=== PATIENT | female | born 1950 | race Caucasian/White ===

== ENCOUNTER 2018-02-17 14:50 | Emergency (ER) | payer MEDICARE, OTHER ==
[2018-02-17] MEDS ORDERED: SODIUM CHLORIDE 0.9% 1,000 ML IV ONE ×2 (16:11→19:00)
[2018-02-17 16:46] LABS: BASOPHILS % (AUTO) 0.5 %; EOSINOPHILS % (AUTO) 0.6 %; HGB - HEMOGLOBIN 14.5 g/dL (12.0-16.0); LYMPHOCYTES # (AUTO) 1.3 10^3/uL (1.5-3.5); LYMPHOCYTES % (AUTO) 17.5 %; MEAN CORPUSCULAR HEMOGLOBIN 30.2 pg (27.0-31.0); MEAN CORPUSCULAR HGB CONC 33.9 g/dL (32.0-36.0); MEAN CORPUSCULAR VOLUME 89.1 fL (81.0-99.0); MEAN PLATELET VOLUME 9.1 fL (7.9-10.8); MONOCYTES # (AUTO) 0.4 10^3/uL (0.0-1.0); MONOCYTES % (AUTO) 4.9 %; NEUTROPHILS # (AUTO) 5.6 10^3/uL (1.5-6.6); NEUTROPHILS % (AUTO) 76.5 %; PLT - PLATELET COUNT 202 10^3/uL (130-450); RED BLOOD COUNT 4.78 10^6/uL (4.20-5.40); RED CELL DISTRIBUTION WIDTH 12.6 % (12.0-15.0); WHITE BLOOD COUNT 7.3 x10^3/uL (4.8-10.8)
[2018-02-17] MEDS ORDERED: ONDANSETRON 4 MG/2 ML VIAL IVP STA ×2 (16:52→19:16)
[2018-02-17 16:54] LABS: ALBUMIN/GLOBULIN RATIO 1.3 (1.0-2.2); BILIRUBIN,TOTAL 0.6 mg/dL (0.2-1.0); CALCIUM 9.6 mg/dL (8.5-10.3); CREATININE 0.8 mg/dL (0.4-1.0); TOTAL PROTEIN 7.2 g/dL (6.7-8.2)
--- NOTE | 2018-02-17 17:00 | ED Physician Documentation ---
History of Present Illness - Stated complaint Stated Complaint: THROAT PX/VOMITING - Chief complaint Chief Complaint: Heent - History obtained from History obtained from: Patient, Family - History of Present Illness Timing: Today Pain level max: 5 Pain level now: 5 Quality: pressure Improved by: nothing Worsened by: eating - Additonal information Additional information: Patient is a 67-year-old female who is approximately one year status post Denise fundoplication and repair of a hiatal hernia at [facility] in [place]. States vomiting today and unable to keep anything down. Patient states that she feels like the food becomes lodged in her esophagus when she tries to swallow and then immediately vomits the food back up. Also unable to tolerate liquids. Review of Systems Ten Systems: 10 systems reviewed and negative Constitutional: denies: Fever, Chills Ears: denies: Ear pain Nose: denies: Rhinorrhea / runny nose, Congestion Throat: denies: Sore throat Cardiac: denies: Chest pain / pressure Respiratory: denies: Cough GI: reports: Nausea, Vomiting. denies: Constipation, Diarrhea, Hematemesis, Bloody / black stool Skin: denies: Rash Musculoskeletal: denies: Neck pain, Back pain PD PAST MEDICAL HISTORY - Past Medical History Past Medical History: Yes Cardiovascular: Other (hiatal hernia) - Past Surgical History Past Surgical History: Yes General: Other (hiatal hernia repair) - Present Medications Home Medications: Ambulatory Orders Medication Instructions Recorded Confirmed No Known Home Medications 02/17/18 02/17/18 - Allergies Allergies/Adverse Reactions: Allergies Allergy/AdvReac Type Severity Reaction Status Date / Time No Known Drug Allergies Allergy Verified 02/17/18 14:59 PD ED PE NORMAL - Vitals Vital signs reviewed: Yes - General General: Alert and oriented X 3, No acute distress, Well developed/nourished - HEENT HEENT: PERRL, Moist mucous membranes - Neck Neck: Supple, no meningeal sign - Cardiac Cardiac: RRR, Strong equal pulses - Respiratory Respiratory: No respiratory distress, Clear bilaterally - Abdomen Abdomen: Soft, Non tender, Non distended - Derm Derm: Warm and dry - Extremities Extremities: No deformity, No edema, No calf tenderness / cord - Neuro Neuro: Alert and oriented X 3 - Psych Psych: Normal mood, Normal affect Results - Vitals Vitals: Vital Signs - 24 hr 02/17/18 02/17/18 14:57 18:30 Temperature 36.3 C L 36.6 C Heart Rate 83 77 Respiratory 20 20 Rate Blood Pressure 147/117 H 162/93 H O2 Saturation 99 99 Oxygen O2 Source Room air - Labs Labs: Laboratory Tests 02/17/18 02/17/18 16:36 16:36 WBC 7.3 RBC 4.78 Hgb 14.5 Hct 42.6 MCV 89.1 MCH 30.2 MCHC 33.9 RDW 12.6 Plt Count 202 MPV 9.1 Neut # (Auto) 5.6 Lymph # (Auto) 1.3 L [place] # (Auto) 0.4 Eos # (Auto) 0.0 Baso # (Auto) 0.0 Absolute Nucleated RBC 0.00 Nucleated RBC % 0.0 Sodium 138 Potassium 4.1 Chloride 105 Carbon Dioxide 28 Anion Gap 5.0 L BUN 22 H Creatinine 0.8 Estimated GFR (MDRD) 71 L Glucose 128 H Calcium 9.6 Total Bilirubin 0.6 AST 29 ALT 25 Alkaline Phosphatase 55 Total Protein 7.2 Albumin 4.0 Globulin 3.2 Albumin/Globulin Ratio 1.3 Lipase 38 PD MEDICAL DECISION MAKING - ED course Complexity details: reviewed results, re-evaluated patient, considered differential, d/w patient, d/w analytical consultant ED course: 1824- D/w Dr. Clayton (Thoracic surgery at [facility]) who accepts in transfer to Dr. Oliver Boyd's service. Patient is unable to tolerate p.o. in the emergency department despite Zofran and IV fluids. Possible complication of recurrent paraesophageal hiatal hernia. Discussed the case with [facility] and will transfer to [facility] for further e valuation and care. She was maintained n.p.o. and given IV fluids after 2 failed p.o. trials. Also maintained on Zofran. COBRA forms filled out This document was made in part using voice recognition software. While efforts are made to proofread this document, sound alike and grammatical errors may occur. - Sepsis Event Vital Signs: Vital Signs - 24 hr 02/17/18 02/17/18 14:57 18:30 Temperature 36.3 C L 36.6 C Heart Rate 83 77 Respiratory 20 20 Rate Blood Pressure 147/117 H 162/93 H O2 Saturation 99 99 Oxygen O2 Source Room air Departure - Departure Disposition: 02 Transfer Acute Care Hosp Clinical Impression: Intractable vomiting Qualifiers: Vomiting type: unspecified Nausea presence: with nausea Qualified Code(s): R11.2 - Nausea with vomiting, unspecified Condition: Stable
[2018-02-17 22:16] VITALS: BP 122/80
== END 2018-02-17 22:40 | disposition short-term general hospital (02) ==
LOC: ED 14:50
DX: R11.2 Nausea with vomiting, unspecified (principal)
CPT/HCPCS: 36415; 80053; 83690; 85025; 96361; 96374; 99283; 99284; 99285